=== PATIENT | male | born 1965 | race Two or more races ===

== ENCOUNTER 2025-03-29 13:23 | Emergency (ER) | payer MEDICAID, OTHER ==
[~2025-03-29] VITALS: Ht 175.3 cm; Wt 100.0 kg
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
--- NOTE | 2025-03-29 15:45 | DVH ---
XY R KNEE 2V XRAY, INDICATION: fall TECHNICAL DATA: Frontal and lateral views were obtained of the right knee. COMPARISON: None FINDINGS: No fracture is identified. Medial, lateral and patellofemoral compartment joint spaces are maintained . Femur jeffrey appears intact. Alignment is anatomic. Soft tissues are within normal limits. No joint ef fusion is demonstrated. IMPRESSION: No acute fracture or dislocation of the right knee.
--- NOTE | 2025-03-29 16:24 | DVH ---
CLINICAL HISTORY: headinjury TECHNIQUE: Helical imaging carried out from skull base to vertex without intravenous contrast. This e xam was performed according to our departmental dose optimization program. Up-to-date CT equipment an d radiation dose reduction techniques are utilized as appropriate. CTDIVol: 56.9 mGy DLP: 1024.61 mGy-cm WID: COMPARISON: None FINDINGS: The ventricles and subarachnoid spaces are normal in size and configuration. There is no midline mindy ft or mass effect. The jack white matter interfaces are maintained. The basal cisterns are patent. Th ere is no evidence of acute intracranial hemorrhage or extra-axial fluid collection. Small bilateral mastoid air cell effusions. The visualized paranasal sinuses are well-aerated. IMPRESSION: 1. No acute intracranial abnormality.
[2025-03-29 17:51] VITALS: BP 152/78; PULSE 78; RESP 16; TEMP 98.7; O2SAT 97
== END 2025-03-29 17:53 | disposition home or self-care (01) ==
LOC: ER 13:23 → EDBD 13:23 → ER 17:53
DX: S01.01XA Laceration without foreign body of scalp, initial encounter (principal); S09.90XA Unspecified injury of head, initial encounter; Y08.89XA Assault by other specified means, initial encounter; Y93.89 Activity, other specified; Y92.89 Other specified places as the place of occurrence of the external cause; Y99.8 Other external cause status
CPT/HCPCS: 12001; 70450; 73560